=== PATIENT | male | born 1965 | race Caucasian/White ===

== ENCOUNTER 2022-05-10 10:14 | Emergency (ER) | payer OTHER | END 2022-05-10 11:25 | disposition home or self-care (01) | LOC: JD.ED 10:14 | DX: S63.682A Other sprain of left thumb, initial encounter (principal); J44.9 Chronic obstructive pulmonary disease, unspecified; F17.210 Nicotine dependence, cigarettes, uncomplicated; W01.198A Fall on same level from slipping, tripping and stumbling with subsequent striking against other object, initial encounter | CPT/HCPCS: 29125; 73140-26-FA; 73140-FA; 99282; 99283-25 ==

== ENCOUNTER 2024-11-20 09:08 | Emergency (ER) | payer BC ==
[2024-11-20] MEDS: Losartan 50 MG Tab PO ONE (09:57)
== END 2024-11-20 11:09 | disposition home or self-care (01) ==
LOC: JD.ED 09:08
DX: I10 Essential (primary) hypertension (principal); J44.9 Chronic obstructive pulmonary disease, unspecified; F17.210 Nicotine dependence, cigarettes, uncomplicated; Z79.82 Long term (current) use of aspirin; Z79.899 Other long term (current) drug therapy
CPT/HCPCS: 93005; 99283; A9270